=== PATIENT | male | born 1945 | race Caucasian/White ===

== ENCOUNTER 2018-07-09 08:11 | Day surgery (SDC) | payer OTHER ==
[2018-07-09] MEDS ORDERED: SURGIFLO MATRIX KIT WITH THROMBIN 8 ML TP ONE (08:34)
[2018-07-09] MEDS ORDERED: CHLORHEXIDINE GLUC HIBICLENS 118 ML BTL TP ONE (08:34)
[2018-07-09] MEDS ORDERED: BUPIVACAINE 0.25% 30 ML SDV ONE (08:35)
[2018-07-09] MEDS ORDERED: EPINEPHrine 1 MG/ML INJ ONE (08:35)
[2018-07-09] MEDS ORDERED: BACITRACIN 50,000 UNITS/10 ML SYR IRR ONE (08:35)
[2018-07-09] MEDS ORDERED: ceFAZolin 2 GM/DEXTROSE 100 ML IV ONE (08:56)
[2018-07-09] MEDS ORDERED: ACETAMINOPHEN 500 MG TAB PO ONE (08:56)
[2018-07-09] MEDS ORDERED: LIDOCAINE 1% 2 ML INJ ID PRN (08:57)
[2018-07-09] MEDS ORDERED: LR 1,000 ML IV ONE (08:57)
[2018-07-09] MEDS ORDERED: PROPOFOL/EMULSION 500 MG/50 ML BOTTLE IV ONE (09:12)
--- NOTE | 2018-07-09 09:25 | PDHPUP ---
History & Physical Update H&P update statement: This history and physical update is based on an assessment of the patient which was completed after admission or registration (within 24 hours), but prior to the surgery/procedure. H&P update: H&P reviewed & patient examined, no change in patient's condition since H&P completed (Consents signed and sited marked. All questions answered.)
[2018-07-09] MEDS ORDERED: fentaNYL 100 MCG/2 ML INJ ONE ×2 (09:53→11:54)
[2018-07-09] MEDS ORDERED: ONDANSETRON 4 MG/2 ML VIAL ONE (10:19)
[2018-07-09] MEDS ORDERED: SUGAMMADEX SODIUM 200 MG/2 ML VIAL IVP ONE (10:19)
[2018-07-09] MEDS ORDERED: LIDOCAINE 2% 5 ML SDV ONE (10:19)
[2018-07-09] MEDS ORDERED: ROCURONIUM 50 MG/5 ML VIAL ONE (10:19)
[2018-07-09] MEDS ORDERED: ONDANSETRON 4 MG/2 ML VIAL IVP PRN (10:28)
[2018-07-09] MEDS ORDERED: LR 500 ML IV PRN (10:28)
[2018-07-09] MEDS ORDERED: ALBUTEROL 3 ML DEYVIAL IH PRN (10:28)
[2018-07-09] MEDS ORDERED: DEXAMETHASONE 4 MG/ML VIAL IVP PRN (10:28)
[2018-07-09] MEDS ORDERED: NALOXONE HCL 0.4 MG/ML INJ IVP PRN (10:28)
--- NOTE | 2018-07-09 10:28 | PDANEPAE ---
ANE Past Medical History - Cardiovascular History Hx Hypertension: No Hx Arrhythmias: No Hx Chest Pain: No Hx Coronary Artery / Peripheral Vascular Disease: No Hx CHF / Valvular Disease: No Hx Palpitations: No - Pulmonary History Hx COPD: No Hx Asthma/Reactive Airway Disease: No Hx Recent Upper Respiratory Infection: No Hx Oxygen in Use at Home: No Hx Sleep Apnea: No Sleep Apnea Screening Result - Last Documented: Negative - Neurologic History Hx Cerebrovascular Accident: No Hx Seizures: No Hx Dementia: No - Endocrine History Hx Diabetes: No - Renal History Hx Renal Disorders: Yes Renal History Comment: HX OF PREV STONE - Liver History Hx Hepatic Disorders: No - Neurological & Psychiatric Hx Hx Neurological and Psychiatric Disorders: No - Cancer History Hx Cancer: Yes Cancer History Comment: SKIN RT EAR AND BRIDGE OF NOSE - Congenital Disorder History Hx Congenital Disorders: No - GI History Hx Gastrointestinal Disorders: Yes Gastrointestinal History Comment: CONSTIPATION - Other Health History Other Health History: SACROLITIS - Chronic Pain History Chronic Pain: Yes (LOWER BACK WITH HIPS) - Surgical History Prior Surgeries: LUMBAR FUSION 07/[address] [facility]. LUMBAR FUSION 06/2017 WITH POST HARDWARE REMVL. LITHOTRIPSY. NERVE ABLATION SI 1-3 BILATERAL ANE Review of Systems Review of Systems: - Exercise capacity METS (RN): 2 METS ANE Patient History - Allergies Allergies/Adverse Reactions: gabapentin Allergy (Verified 06/16/18 11:09) MADE HIM FEEL LIKE HE WAS DYING - Home Medications Home Medications: Herbals/Supplements -Info Only DAILY 06/16/18 [Last Taken Unknown] Meloxicam DAILY 06/16/18 [Last Taken Unknown] Oxycodone HCl QID 06/16/18 [Last Taken Unknown] - NPO status NPO Since - Liquids (Date): 07/09/18 NPO Since - Liquids (Time): 05:00 NPO Since - Solids (Date): 07/08/18 NPO Since - Solids (Time): 09:00 - Smoking Hx Smoking Status: Never smoked ANE Labs/Vital Signs - Vital Signs Blood Pressure: 135/79 Heart Rate: 58 Respiratory Rate: 16 O2 Sat (%): 95 Height: 167.64 cm Weight: 88.451 kg ANE Physical Exam - Airway Neck exam: FROM Mallampati Score: Class 1 Mouth exam: normal dental/mouth exam - Pulmonary Pulmonary: no respiratory distress, no rales or rhonchi, clear to auscultation - Cardiovascular Cardiovascular: regular rate and rhythym, no murmur, rub, or gallop - ASA Status ASA Status: II ANE Anesthesia Plan Anesthesia Plan: general endotracheal anesthesia Total IV Anesthesia: Yes
[2018-07-09] MEDS ORDERED: GLYCOPYRROLATE 0.2 MG/1 ML VIAL ONE (10:49)
[2018-07-09] MEDS ORDERED: TRANEXAMIC ACID 1,000 MG in NS 100 ML IV ONE (11:06)
[2018-07-09] MEDS ORDERED: DIAZEPAM 5 MG TAB PO PRN (11:37)
[2018-07-09] MEDS ORDERED: oxyCODONE IR 5 MG TAB PO PRN (11:37)
--- NOTE | 2018-07-09 11:37 | POSTOPPROG ---
Post Op Note Date of Operation: 07/09/18 Surgeon: Maximilian Machuca Layout Inspector: OLIVIA Segundo PAC Anesthesia: GET(General Endotracheal) Pre-op Diagnosis: Sacroilitis Post-op Diagnosis: Sacroilitis Indication: Sacroilitis Procedure: bilateral SI join fusion Inf/Abcess present in the surg proc area at time of surgery?: No EBL: Minimal PA Addendum - Addendum .: S: bilateral gluteal pain, denies any new numbness, tingling or weakness O: NAD A&Ox3 MAEx4 5/5 and equal in BUE and BLE A/P: 73y/o male s/p bilateral SI joint fusion Advance diet as tolerated Post op xrays pending Optimize pain management Patient may d/c home when meets PACU criteria
[2018-07-09] MEDS: fentaNYL 100 MCG/2 ML INJ IVP PRN ×2 (11:55→12:01)
--- NOTE | 2018-07-09 12:54 | POSTANESTH ---
Post Anesthetic Evaluation Cardiovascular Status: Normal, Stable, Similar to Pre-Op Cond Respiratory Status: Normal, Stable, Similar to Pre-op Cond. Level of Consciousness/Mental Status: Mildly Sleepy, Arousable Pain Control: Adequate, Prn Tx Ordered Nausea/Vomiting Control: Adequate, Prn Tx Ordered Complications Possibly Related to Anesthesia: None Noted
[2018-07-09 14:24] VITALS: BP 101/62
--- NOTE | 2018-07-09 20:14 | GOP ---
DATE OF OPERATION: 07/09/2018 SURGEON: Maximilian Machuca MD [facility]: [facility]. ANESTHESIA: General. PREOPERATIVE DIAGNOSIS: 1. Bilateral sacroiliitis. 2. Treatment refractory to nonoperative intervention. POSTOPERATIVE DIAGNOSIS: 1. Bilateral sacroiliitis. 2. Treatment refractory to nonoperative intervention. PROCEDURE PERFORMED: 1. Right-sided minimally invasive sacroiliac joint fusion with two 50 mm Medtronic [place] cages filled with morselized autograft and allograft. 2. Left-sided minimally invasive sacroiliac joint fusion with two 50 mm Medtronic [place] cages filled with morselized autograft and allograft. 3. Use of intraoperative 3D Stealth navigation. 4. Use of intraoperative fluoroscopy, less than 1 hour physician time. 5. Use of neuromonitoring. FINDINGS: per imaging SPECIMENS: None. ESTIMATED BLOOD LOSS: 10 mL. INDICATIONS: The patient is a 73-year-old gentleman who has undergone multiple prior lumbar spine surgeries. He presented with worsening bilateral sacroiliac joint dysfunction which has been treated with conservative management for years. The patient continued to have symptoms. After discussion of the risks, benefits, and treatment alternatives and after failing nonoperative intervention , we decided to proceed forth with surgery as described above. DESCRIPTION OF PROCEDURE: The patient was brought to the operating theater and underwent general endotracheal anesthesia without complications. He had Venodynes, BENJAMÍN hose, and appropriate lines placed by Anesthesia. He was flipped prone on the J Luis table and all bony prominences inspected and padded. The lower lumbar region was prepped and draped in the usual sterile surgical fashion. A time-out was completed per protocol. The patient received antibiotics within 1 hour of incision. The posterior superior iliac spine on the left side was palpated and an incision infiltrated with Marcaine with epinephrine. The incision was opened with a scalpel blade. The percutaneous pin for the 3D Stealth navigation clamp was then placed into the left posterior superior iliac spine. The 3D Stealth navigation system was then brought in the field. We completed a 3D Stealth navigation spin. Using 3D Stealth navigation, we picked our entry point to the left side and then right side of the sacroiliac joint. These were marked as two vertical incisions on the buttocks. We then first started on the right side, where we drilled and tapped and then measured two holes across the right side of the sacroiliac joint. These were measured as 50 mm screws. We then placed morselized autograft and allograft into two Medtronic [place] 50 mm screws which were placed across the right side of the sacroiliac joint. We then proceeded in the exact same fashion on the left side, where we then placed again two 50 mm [place] Medtronic screws filled with morselized autograft and allograft across the left side of the sacroiliac joint using the 3D Stealth navigation system. Another 3D Stealth navigation spin demonstrated excellent placement of the hardware. The navigation system was removed from the field and the wounds irrigated copiously with bacitracin irrigation. We then closed the wounds in multiple layers, including Vicryl sutures for the deep layers and Dermabond for the skin. The patient's wounds were dressed sterilely. He was then awakened, extubated, and taken to the recovery room in stable condition. There were no complications and no noted changes on neuromonitoring throughout the procedure. The use of the PA was crucial to retracting and protecting the soft tissues intraoperatively. COMPLICATIONS: None. /[id number]/MODL MTDD
== END 2018-07-09 14:13 | disposition home or self-care (01) ==
LOC: FSGY 08:11
PROVIDERS: ATTEND Neurological Surgery
PROC: 0SG Lower Joints, Fusion (ICD-10-PCS; principal; 2018-07-09 10:00)
PROC: 0SG Lower Joints, Fusion (ICD-10-PCS; principal; 2018-07-09 10:00)
PROC: 8E0WXBF Computer Assisted Procedure of Trunk Region, With Fluoroscopy (ICD-10-PCS; principal; 2018-07-09 10:00)
PROC: BR1BYZZ Fluoroscopy of Lumbosacral Joint using Other Contrast (ICD-10-PCS; principal; 2018-07-09 10:00)
PROC: 4A1034G Monitoring of Central Nervous Electrical Activity, Intraoperative, Percutaneous Approach (ICD-10-PCS; principal; 2018-07-09 10:00)
DX: M46.1 Sacroiliitis, not elsewhere classified (principal); M48.07 Spinal stenosis, lumbosacral region; M54.40 Lumbago with sciatica, unspecified side; M51.36 Other intervertebral disc degeneration, lumbar region; G89.4 Chronic pain syndrome; Z87.891 Personal history of nicotine dependence; Z98.1 Arthrodesis status
CPT/HCPCS: C1713; J0171; J0690; J2405; J2704; J3010

== ENCOUNTER 2018-11-20 04:53 | Inpatient (IN) | payer OTHER ==
[2018-11-20] MEDS ORDERED: ACETAMINOPHEN 500 MG TAB PO ONE (05:51)
[2018-11-20] MEDS ORDERED: LR 1,000 ML IV ONE (05:51)
[2018-11-20] MEDS ORDERED: ceFAZolin 2 GM/DEXTROSE 100 ML IV ONE (05:51)
[2018-11-20] MEDS ORDERED: morphINE PF 0.2 MG in SYRINGE INTRATHECAL 1 SYR IT ONE (05:51)
[2018-11-20] MEDS ORDERED: BUPIVACAINE 0.25% 30 ML SDV ONE (06:54)
[2018-11-20] MEDS ORDERED: THROMBIN (BOVINE) 20,000 UNIT VIAL TP ONE (06:54)
[2018-11-20] MEDS ORDERED: CHLORHEXIDINE GLUC HIBICLENS 118 ML BTL TP ONE (06:54)
[2018-11-20] MEDS ORDERED: CITRATE DEXTROSE SOLN 500 ML BAG ONE (06:54)
[2018-11-20] MEDS ORDERED: EPINEPHrine 1 MG/ML INJ ONE (06:55)
[2018-11-20] MEDS ORDERED: BACITRACIN 50,000 UNITS/10 ML SYR IRR ONE (06:55)
--- NOTE | 2018-11-20 07:02 | PDHPUP ---
History & Physical Update H&P update statement: This history and physical update is based on an assessment of the patient which was completed after admission or registration (within 24 hours), but prior to the surgery/procedure. H&P update: H&P reviewed & patient examined, no change in patient's condition since H&P completed (Consents signed and site marked. All questions answered. )
[2018-11-20] MEDS ORDERED: fentaNYL 100 MCG/2 ML INJ ONE (07:04)
[2018-11-20] MEDS ORDERED: REMIFENTANIL HCL 1 MG VIAL ONE ×3 (07:05→11:22)
[2018-11-20] MEDS ORDERED: PROPOFOL/EMULSION 500 MG/50 ML BOTTLE IV ONE ×3 (07:05→11:01)
[2018-11-20] MEDS ORDERED: LIDOCAINE 2% 5 ML SDV ONE (07:07)
[2018-11-20] MEDS ORDERED: ROCURONIUM 50 MG/5 ML VIAL ONE (07:09)
[2018-11-20] MEDS ORDERED: KETAMINE 200 MG/20 ML VIAL ONE (07:14)
[2018-11-20] MEDS ORDERED: ONDANSETRON 4 MG/2 ML VIAL ONE (07:16)
[2018-11-20] MEDS ORDERED: DEXAMETHASONE 4 MG/ML VIAL ONE (07:16)
--- NOTE | 2018-11-20 07:19 | PDANEPAE ---
ANE History of Present Illness previous spine surgeries with ongoing lumbosacral radiculopathy ANE Past Medical History - Cardiovascular History Hx Hypertension: No Hx Arrhythmias: No Hx Chest Pain: No Hx Coronary Artery / Peripheral Vascular Disease: No Hx CHF / Valvular Disease: No Hx Palpitations: No - Pulmonary History Hx COPD: No Hx Asthma/Reactive Airway Disease: No Hx Recent Upper Respiratory Infection: No Hx Oxygen in Use at Home: No Hx Sleep Apnea: No Sleep Apnea Screening Result - Last Documented: Negative Pulmonary History Comment: USES O2 WHEN AT 10,000 FT AT TIMES TO PREVENT HEADACHES - Neurologic History Hx Cerebrovascular Accident: No Hx Seizures: No Hx Dementia: No Neurologic History Comment: HX OF SPINAL FUSIONS - Endocrine History Hx Diabetes: No - Renal History Hx Renal Disorders: Yes Renal History Comment: HX OF PREV STONE - Liver History Hx Hepatic Disorders: No - Neurological & Psychiatric Hx Hx Neurological and Psychiatric Disorders: No - Cancer History Hx Cancer: Yes Cancer History Comment: SKIN RT EAR AND BRIDGE OF NOSE - Congenital Disorder History Hx Congenital Disorders: No - GI History Hx Gastrointestinal Disorders: Yes Gastrointestinal History Comment: CONSTIPATION - Other Health History Other Health History: SACROLITIS. WEARS GLASSES - Chronic Pain History Chronic Pain: Yes (LOWER BACK WITH HIPS) - Surgical History Prior Surgeries: 07/09/18 SI FUSION WITH [facility]. LUMBAR FUSION 07/2017 AT [facility]. LUMBAR FUSION 06/2017 WITH POST HARDWARE REMVL. LITHOTRIPSY. NERVE ABLATION SI 1-3 BILATERAL ANE Review of Systems Review of systems is: negative Review of Systems: - Exercise capacity METS (RN): 4 METS ANE Patient History - Allergies Allergies/Adverse Reactions: gabapentin Allergy (Verified 11/20/18 05:54) MADE HIM FEEL LIKE HE WAS DYING - Home Medications Home medications: home medication list seen and reviewed Home Medications: Herbals/Supplements -Info Only 1 each PO DAILY 06/16/18 [Last Taken 11/13/18] Acetaminophen [Tylenol ES 500 mg (*)] 500 mg PO Q6 PRN 11/03/18 [Last Taken ] Ascorbic Acid [Vitamin C 500 mg (*)] 1,000 mg PO DAILY 11/03/18 [Last Taken 04/26] Cholecalciferol Vit D3 [Vitamin D3 2000 units tab (OTC)] 2,000 units PO DAILY [Last Taken 11/13/18] Diazepam [Valium 5 MG (*)] 5 mg PO QID 11/03/18 [Last Taken 11/20/18] Morphine Sulfate [Ms Contin] 30 mg PO BID 11/03/18 [Last Taken 11/20/18] Polyethylene Glycol 3350 [Miralax 17 gm (*)] 17 gm PO DAILY 11/03/18 [Last Taken 11/17/18] Tamsulosin HCl [Flomax 0.4 MG (*)] 0.4 mg PO DAILY 11/03/18 [Last Taken 11/06/18 ] Vitamin B Complex [Vitamin B Complex (OTC)] 1 each PO DAILY 11/03/18 [Last Taken 11/13/18] oxyCODONE IR [Oxycodone Ir (*)] 10 mg PO QID PRN 11/03/18 [Last Taken 11/20/18] - NPO status NPO Since - Liquids (Date): 11/19/18 NPO Since - Liquids (Time): 20:00 NPO Since - Solids (Date): 09/07/13 - Anes Hx Anes Hx: no prior problems - Smoking Hx Smoking Status: Never smoked - Alcohol Use Alcohol Use: None - Family Anes Hx Family Anes Hx: none Family Hx Anesthesia Complications: NONE ANE Labs/Vital Signs - Vital Signs Blood Pressure: 161/93 Heart Rate: 60 Respiratory Rate: 16 O2 Sat (%): 94 Height: 167.64 cm Weight: 83.461 kg ANE Physical Exam - Airway Neck exam: FROM Mallampati Score: Class 1 Mouth exam: normal dental/mouth exam - Pulmonary Pulmonary: no respiratory distress - Cardiovascular Cardiovascular: regular rate and rhythym - ASA Status ASA Status: III ANE Anesthesia Plan Anesthesia Plan: general endotracheal anesthesia Lines/Monitors: arterial line, additional IV
[2018-11-20] MEDS ORDERED: BUPIVACAINE 0.5% 30 ML SDV ONE (07:40)
[2018-11-20] MEDS ORDERED: HYDROmorphONE/DILAUDID 2 MG/ML INJ ONE (08:03)
[2018-11-20] MEDS ORDERED: MIDAZOLAM 2 MG/2 ML VIAL ONE (08:24)
[2018-11-20] MEDS ORDERED: BISACODYL 10 MG SUPP PR PRN (09:18)
[2018-11-20] MEDS ORDERED: POLYETHYLENE GLYCOL 3350 17 GM PKT PO PRN (09:18)
[2018-11-20] MEDS ORDERED: MAGNESIUM HYDROXIDE 30 ML UDCUP PO PRN (09:18)
[2018-11-20] MEDS ORDERED: diphenhydrAMINE 25 MG CAP PO PRN (09:18)
[2018-11-20] MEDS ORDERED: ONDANSETRON 4 MG/2 ML VIAL IVP PRN ×2 (09:18→11:07)
[2018-11-20] MEDS ORDERED: ONDANSETRON DISINTEGRATING 4 MG TAB PO PRN (09:18)
[2018-11-20] MEDS ORDERED: LACTULOSE 20 GM/30 ML UDCUP PO PRN (09:18)
[2018-11-20] MEDS ORDERED: ePHEDrine SULFATE 25 MG/5 ML SYR ONE (09:36)
[2018-11-20] MEDS ORDERED: ceFAZolin 1 GM VIAL ONE (10:57)
[2018-11-20] MEDS ORDERED: LR 500 ML IV PRN (11:07)
[2018-11-20] MEDS ORDERED: LABETALOL HCL 5 MG/ML 20 ML MDV IVP PRN (11:07)
[2018-11-20] MEDS ORDERED: NALOXONE HCL 0.4 MG/ML INJ IVP PRN (11:07)
[2018-11-20] MEDS ORDERED: DIAZEPAM 5 MG/ML 1 ML SYR IVP PRN (11:07)
[2018-11-20] MEDS ORDERED: PHENYLEPHRINE HCL 100 MCG/ML SYR IVP PRN (11:07)
[2018-11-20] MEDS ORDERED: HYDROCODONE/APAP 5/325 TAB PO PRN (11:07)
[2018-11-20] MEDS ORDERED: HYDROmorphONE/DILAUDID 2 MG/ML INJ IVP PRN (11:07)
[2018-11-20] MEDS ORDERED: fentaNYL 100 MCG/2 ML INJ IVP PRN (11:07)
[2018-11-20] MEDS ORDERED: PROMETHAZINE HCL 25 MG/ML INJ IVP PRN (11:07)
[2018-11-20] MEDS ORDERED: oxyCODONE IR 5 MG TAB PO PRN (11:07)
[2018-11-20] MEDS ORDERED: ALBUTEROL 3 ML DEYVIAL IH PRN (11:07)
[2018-11-20] MEDS ORDERED: ACETAMINOPHEN 500 MG TAB PO PRN (11:07)
--- NOTE | 2018-11-20 11:07 | POSTANESTH ---
Post Anesthetic Evaluation Cardiovascular Status: Normal, Stable Respiratory Status: Normal, Stable Level of Consciousness/Mental Status: Can Participate in Eval, Mildly Sleepy, Arousable Pain Control: Adequate, Prn Tx Ordered Nausea/Vomiting Control: Adequate, Prn Tx Ordered Complications Possibly Related to Anesthesia: None Noted
--- NOTE | 2018-11-20 13:09 | PDMN ---
Medical Necessity Medical necessity: MCG: S820 lumbar fusion INPT only OP: L5/S1 anterior lumbar fusion L5/S1 posterior lumbar fusion with hardware revision--. AUTH# [id number] APPROVED FOR CPT CODES 39172, 66048, 09003, 06562, 73933, 94565 AND 19233 TO BE DONE INPATIENT. 2 DAYS LOS.
--- NOTE | 2018-11-20 13:14 | GOP ---
[f rep st] OPERATIVE REPORT DATE OF OPERATION: 11/20/2018 SURGEON: Maximilian Machuca MD CO-SURGEON: Antwan Lou MD FOREIGN STUDENT ADVISER: HERNANDO Garza ANESTHESIA: General. COMPLICATIONS: None. PREOPERATIVE DIAGNOSIS: 1. 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 2. Ongoing low back pain. 3. Treatment refractory to non-operative intervention. POSTOPERATIVE DIAGNOSIS: 1. 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 2. Ongoing low back pain. 3. Treatment refractory to non-operative intervention. PROCEDURE PERFORMED: 1. Anterior arthrodesis with approach to L5-S1. 2. Exploration of prior anterior lumbar hardware and subsequent removal of anterior interbody hardware at the L5-S1 level. 3. Redo L5-S1 diskectomy and interbody fusion using a 12 degree 16 x 30 x 24 mm Medtronic perimeter peek cage filled with morselized autograft and allograft. 4. Anterior lumbar fusion L5-S1 with a large Medtronic Pivox plate with 1 screw into L5 and 1 screw into S1. 5. Use of intraoperative fluoroscopy, less than 1 hour physician time. 6. Use of neuromonitoring. FINDINGS: per imaging SPECIMENS: None. ESTIMATED BLOOD LOSS: 150 mL. INDICATIONS: The patient is a very pleasant gentleman who has undergone multiple lumbar prior spinal surgeries including bilateral SI joint fusions. He continued to have ongoing low back pain. Imaging demonstrated some lucencies around the bilateral S1 screws with no definitive evidence of L5-S1 fusion. After discussion of risks, benefits, and treatment alternatives, we decided to proceed with surgery as described above. Please note, this is stage I of a planned 2 stage surgical procedure. Stage 2 will be a posterior approach described in a separate operative report. DESCRIPTION OF PROCEDURE: The patient was brought to operating theater and underwent general endotracheal anesthesia without complications. He had Venodynes, BENJAMÍN hose, and the appropriate lines placed by Anesthesia. His arms were placed across and a small bump placed on the lumbar spine. The lower abdominal region was prepped and draped in the usual sterile surgical fashion. A time-out was completed per protocol and the patient received antibiotics within [address] Lou and his team will then dictate in a separate operative report the anterior abdominal approach to get us to the anterior aspect of L5-S1. Once this was completed, we confirmed our level using lateral fluoroscopy. We incised the anterior L5-S1 disk space with an 11 blade. We were able to identify the prior hardware at the L5-S1 space and this did appear to be loose upon further exploration with a Edgar. We used the bur tip on the drill bit and osteotomes to remove the prior interbody cage at the L5-S1 level which was then passed off the field. We used the drill bit, curettes and Kerrison punches to complete a redo L5-S1 diskectomy. We prepared the cartilaginous endplates and measured the interbody space. We placed a 12 degree 16 x 30 x 24 mm Perimeter peek cage filled with morselized autograft and allograft into the L5-S1 disk space. We then drilled down the anterior osteophytes and secured a large Medtronic Pivox plate with a screw into L5 and a screw into S1. AP and lateral x-rays demonstrated good placement of the hardware. Dr. Antwan Lou will then dictate in a separate operative report the abdominal closure. The patient's neuro monitoring was stable by the end of this case. The sponge, needle and instrument counts were correct. /[id number]/MODL MTDD
[2018-11-20] MEDS ORDERED: LABETALOL HCL 5 MG/ML 20 ML MDV ONE (13:16)
[2018-11-20] MEDS ORDERED: MEPERIDINE 25 MG/0.5 ML AMP ONE (13:16)
[2018-11-20] MEDS: MEPERIDINE 25 MG/0.5 ML AMP IVP PRN ×2 (13:31→13:35)
--- NOTE | 2018-11-20 13:41 | POSTOPPROG ---
Post Op Note Date of Operation: 11/20/18 Surgeon: Maximilian Machuca Search Strategist: OLIVIA Segundo PAC Anesthesia: GET(General Endotracheal) Pre-op Diagnosis: Psedoarthoresis, back pain Post-op Diagnosis: Psedoarthoresis, back pain Indication: Psedoarthoresis, back pain Procedure: L5/S1 ALIF, L4-S1 exploration and revison of prior fusion Inf/Abcess present in the surg proc area at time of surgery?: No EBL: 100-500 Drains: Hemovac, J Luis Cunningham PA Addendum - Addendum .: S: low back pain O: NAD A&Ox3 MAEx4 5/5 and equal in BUE and BLE 73y/o male s/p L5/S1 ALIF, L4-S1 exploration and revision of prior fusion -Post op xrays pending -PT/OT -SANDRA x1 -CLD, advance per general surgery -LSO when OOB -DVT prophx: TEDs, SCDs, Lovenox okay POD 1 -Please notify NS with any change in neuro/motor exam
[2018-11-20] MEDS ORDERED: DIAZEPAM 5 MG/ML 1 ML SYR ONE (13:55)
[2018-11-20] MEDS: HYDROmorphONE/DILAUDID 1 MG/ML INJ IVP PRN (14:40)
--- NOTE | 2018-11-20 14:40 | GOP ---
[f rep st] OPERATIVE REPORT DATE OF OPERATION: 11/20/2018 SURGEON: Maximilian Machuca MD SOLUTION CONSULTANT: Hue Segundo PA-C. ANESTHESIA: General. PREOPERATIVE DIAGNOSIS: 1. L5-S1 pseudoarthrosis with history of prior lumbar fusion L4 through S1 and bilateral sacroiliac joint fusions. 2. Low back pain. 3. Treatment refractory to non-operative intervention. POSTOPERATIVE DIAGNOSIS: 1. L5-S1 pseudoarthrosis with history of prior lumbar fusion L4 through S1 and bilateral sacroiliac joint fusions. 2. Low back pain. 3. Treatment refractory to non-operative intervention. PROCEDURE PERFORMED: 1. Posterior arthrodesis with approach to L4, L5, and S1. 2. Exploration of lumbar hardware with subsequent removal of L4, L5, and S1 pedicle screws from the Solera 4.75 system. 3. Posterolateral fusion with bilateral pedicle screw placement into L4, L5, and S1 from the [employer] Solera 5.5/6.0 system. 4. Posterolateral fusion on the left between L4 and S1 with morselized autograft and allograft. 5. Use of intraoperative 3D Stealth navigation. 6. Use of intraoperative fluoroscopy, less than 1 hour physician time. 7. Use of neuromonitoring. 8. Injection of preservative-free intrathecal narcotics. FINDINGS: per imaging SPECIMENS: Cultures were taken from the old hardware was sent to microbiology. ESTIMATED BLOOD LOSS: 30 mL INDICATIONS: The patient is a very pleasant gentleman who has undergone multiple spinal fusions including bilateral SI joint fusions for ongoing low back pain. Imaging demonstrated a possible loosening of the bilateral S1 screws , and there was concern for possible pseudoarthrosis. After discussion of the risks, benefits, and alternatives, and after failing nonoperative intervention, I decided to proceed forth with surgery as described above. DESCRIPTION OF PROCEDURE: Please note that this is stage 2 of a planned 2- stage surgical procedure. Stage 1 is dictated in a separate operative report and was the anterior approach to the L5-S1. The patient was already asleep at the time of the completion of stage 1. At this point, he was flipped prone onto the J Luis table, and all bony prominences were inspected and padded. The previous lumbar incision was identified and marked. This area was prepped and draped in usual sterile surgical fashion. A time-out was completed again per protocol, and the patient received re-dosing of antibiotics per protocol. The incision was infiltrated with Marcaine with epinephrine. Using the monopolar, a dissection was taken down midline to the lumbodorsal fascia, and we completed out dissection laterally to identify the prior hardware at the L4, L5, and S1 levels. Care was taken to avoid the midline defect from his prior laminectomy. We removed the bilateral cap screws in the L4, L5, and S1 levels, as well as bilateral rods and passed them off the field. We then used a distractor to explore the L4 -L5 and L5-S1 levels. The S1 screws were noted to be slightly loose. We then removed the pedicle screws from the L4, L5, and S1 levels and culture swab of these to ensure that there was no infection. We then replaced the screws with 7.5 x 50 mm screw on the left at L4, 7.5 x 55 mm screw on the right at L4, 7.5 x 40 mm screw on the left at L5, 7.5 x 45 mm screw on the right L5, and left at S1 an 8.5 x 45 mm screw on the right S1, all from the [employer] 5.5 x 60 System. A 3D navigation spin demonstrated good placement of the hardware. We decorticated the bone on the left side between L4 and S1. We placed 2 lordotic rods into the heads of the screws between L4 and S1 and secured them down with cap screws which were then tightened to the printed circuit board drafter's setting. We placed morselized autograft and allograft on the left side between L4 and S1 for the posterolateral fusion. We injected preservative-free intrathecal narcotics. A drain was left in the subfascial space. The wound then closed in multiple layers including Vicryl sutures deep layers and Dermabond for skin. The patient's wound was dressed sterilely. He was flipped supine onto the transfer cart, where he was awakened, extubated, taken to recovery room in stable condition. There were no complications and no noted changes on neuromonitoring throughout the procedure. COMPLICATIONS: None. /[id number]/MODL MTDD
[2018-11-20] MEDS: DIAZEPAM 5 MG TAB PO SCH ×3 (14:52→20:05)
[2018-11-20] MEDS: ACETAMINOPHEN 500 MG TAB PO SCH ×2 (14:53→20:07)
[2018-11-20] MEDS: NS 1,000 ML IV SCH (14:58)
--- NOTE | 2018-11-20 15:22 | ASMTCMCOM ---
CM Note CM Note Notes: Pt had planned spinal surgery, resides with . PT/OT evals pending. CM to follow for d/c planning. Date Signed: 11/20/2018 03:21 PM Electronically Signed By:KODI Azar
[2018-11-20] MEDS: oxyCODONE IR 5 MG TAB PO PRN (16:23)
[2018-11-20] MEDS: ceFAZolin 2 GM/DEXTROSE 100 ML IV SCH ×2 (16:25→23:30)
[2018-11-20] MEDS: FAMOTIDINE 20 MG TAB PO SCH (20:05)
[2018-11-20] MEDS: morphINE SR 30 MG TAB PO SCH (20:05)
[2018-11-20] MEDS: SENNOSIDES/DOCUSATE SODIUM TAB PO SCH (20:05)
[2018-11-21] MEDS: NS 1,000 ML IV SCH (03:18)
[2018-11-21] MEDS: oxyCODONE IR 5 MG TAB PO PRN ×3 (03:24→16:21)
[2018-11-21] MEDS: DIAZEPAM 5 MG TAB PO SCH ×4 (05:12→20:35)
[2018-11-21] MEDS: ACETAMINOPHEN 500 MG TAB PO SCH ×3 (05:12→20:37)
[2018-11-21] MEDS: TAMSULOSIN HCL 0.4 MG CAP PO SCH (08:01)
[2018-11-21] MEDS: FAMOTIDINE 20 MG TAB PO SCH ×2 (08:01→20:35)
[2018-11-21] MEDS: SENNOSIDES/DOCUSATE SODIUM TAB PO SCH ×2 (08:01→20:39)
[2018-11-21] MEDS: VITAMIN B COMPLEX 1 EA CAP/TAB PO SCH (08:01)
[2018-11-21] MEDS: CHOLECALCIFEROL VIT D3 2,000 UNITS TAB/CAP PO SCH (08:01)
[2018-11-21] MEDS ORDERED: HERBALS PO SCH (09:00)
[2018-11-21] MEDS ORDERED: [UNRECOGNIZED DRUG - OTHER] PO SCH (09:00)
[2018-11-21] MEDS: morphINE SR 30 MG TAB PO SCH ×2 (09:14→20:35)
--- NOTE | 2018-11-21 10:07 | SOAPPROG ---
SOAP Progress Note Assessment/Plan: Assessment: POD #1 sp L5/S1 ALIF, L4-S1 exploration and revison of prior fusion. Doing well with resolution of left leg pain Plan: advance diet per Gen surg. Xrays Lumbar spine when he can tolerate Continue SANDRA PT/OT LSO when OOB 11/21/18 10:01 11/21/18 10:07 11/21/18 10:50 Subjective: lying in bed, comfortable. Left leg pain better ate breakfast, states he is passing gas and wants to have a BM Denies new N/T/W Objective: Vital Signs Temp Pulse Resp BP Pulse Ox 36.3 C 67 17 83/43 L 91 L 11/21/18 07:54 11/21/18 07:54 11/21/18 07:54 11/21/18 07:54 11/21/18 07:54 Microbiology 11/20/18 12:24 Gram Stain - Final Other - Eswab Laboratory Results 11/20/18 13:35 11/20/18 11/21/18 11/22/18 05:59 05:59 05:59 Intake Total 4219 300 Output Total 1090 Balance 3129 300 Neuro: awake, alert, SWEENEY, sens +Lt follows commands Abdomen: soft, mildly tender, non- distended Ant incision: CDI Post incision: CDI SANDRA: 90 ml ICD10 Worksheet Patient Problems: Problems Problem Status Onset Pseudarthrosis after fusion or arthrodesis Acute - ICD10 Problem Qualifiers (1) Pseudarthrosis after fusion or arthrodesis
--- NOTE | 2018-11-21 10:28 | SOAPPROG ---
SOAP Progress Note Assessment/Plan: Assessment/Plan: 73yo M POD#1 s/p anterior exposure by Dr. Lou for L5/S1 ALIF , L4-S1 exploration and revision of prior fusion by Dr. Machuca. Pain in both abd and back - controlled No flatus and hypoactive BS - Continue clears until return of bowel function NSG managing Seen with Dr. Chicas S: Complains of pain this morning, worse in back than abdomen. No nausea. No flatus. O: General: Lying in bed, comfortable, no acute distress Respiratory: No increased work of breathing Abdomen: Hypoactive bowel sounds, soft, nontender. Dressing intact. Skin: Warm and dry. Psych: Mood and affect normal Neuro: Grossly intact 11/21/18 10:29 11/21/18 10:30 Objective: Vital Signs Temp Pulse Resp BP Pulse Ox 36.3 C 67 17 83/43 L 91 L 11/21/18 07:54 11/21/18 07:54 11/21/18 07:54 11/21/18 07:54 11/21/18 07:54 Microbiology 11/20/18 12:24 Gram Stain - Final Other - Eswab Laboratory Results 11/20/18 13:35 11/20/18 11/21/18 11/22/18 05:59 05:59 05:59 Intake Total 4219 300 Output Total 1090 Balance 3129 300 ICD10 Worksheet Patient Problems: Problems Problem Status Onset Pseudarthrosis after fusion or arthrodesis Acute
--- NOTE | 2018-11-21 13:30 | ASMTCMCOM ---
CM Note CM Note Notes: PT is recommending HC. OT is recommending Home w/ 24 hr supervision. CM met w/ pt for dispo planning. Pt deferred d/c planning to his Saumya. CM called Saumya (P#: [phone]) and spoke to her about the recommendations. Saumya would like a referral made to [facility]. [facility] is able to accept. CM confirmed pts address and phone number. Pts PCP is Dr. Dumont. CM to follow. Plan: [facility]; PT, possibly OT Date Signed: 11/21/2018 01:29 PM Electronically Signed By:FÉLIX Harvey
[2018-11-21] MEDS: ENOXAPARIN 40 MG/0.4 ML SYR SC SCH (16:17)
[2018-11-21] MEDS ORDERED: NS 1,000 ML IV SCH (16:30)
[2018-11-22] MEDS: oxyCODONE IR 5 MG TAB PO PRN ×5 (02:58→22:32)
[2018-11-22] MEDS: DIAZEPAM 5 MG TAB PO SCH ×4 (05:16→19:58)
[2018-11-22] MEDS: ACETAMINOPHEN 500 MG TAB PO SCH ×3 (06:00→22:32)
[2018-11-22] MEDS: morphINE SR 30 MG TAB PO SCH ×2 (07:41→19:58)
[2018-11-22] MEDS: FAMOTIDINE 20 MG TAB PO SCH ×2 (07:41→19:58)
[2018-11-22] MEDS: CHOLECALCIFEROL VIT D3 2,000 UNITS TAB/CAP PO SCH (07:44)
[2018-11-22] MEDS: VITAMIN B COMPLEX 1 EA CAP/TAB PO SCH (07:44)
[2018-11-22] MEDS: TAMSULOSIN HCL 0.4 MG CAP PO SCH (07:44)
[2018-11-22] MEDS: SENNOSIDES/DOCUSATE SODIUM TAB PO SCH ×3 (07:44→19:57)
[2018-11-22] MEDS: ENOXAPARIN 40 MG/0.4 ML SYR SC SCH (07:44)
--- NOTE | 2018-11-22 09:14 | SOAPPROG ---
SOAP Progress Note Assessment/Plan: Assessment: POD #2 sp L5/S1 ALIF, L4-S1 exploration and revison of prior fusion. Doing well with resolution of left leg pain Tenderness in RUQ abdomen Plan: advance diet per Gen surg. Xrays Lumbar spine today Remove SANDRA drain today. PT/OT LSO when OOB May need rehab. 11/22/18 09:12 Subjective: Lying in bed. Comfortable. Denies new numbness tingling or weakness. Has some right sided abdominal pain. Objective: Vital Signs Temp Pulse Resp BP Pulse Ox 36.9 C 73 18 114/62 91 L 11/22/18 07:53 11/22/18 07:53 11/22/18 07:53 11/22/18 07:53 11/22/18 07:53 Microbiology 11/20/18 12:24 Gram Stain - Final Other - Eswab Laboratory Results 11/20/18 13:35 /11/22/18 11/23/18 05:59 05:59 05:59 Intake Total 4219 1600 Output Total 1090 2265 Balance 3129 -665 Neuro; SWEENEY, sens +LT FC x 4 oriented x 3 Dressing: CDI SANDRA: 15ml ICD10 Worksheet Patient Problems: Problems Problem Status Onset Pseudarthrosis after fusion or arthrodesis Acute - ICD10 Problem Qualifiers (1) Pseudarthrosis after fusion or arthrodesis
[2018-11-22] MEDS: HYDROmorphONE/DILAUDID 1 MG/ML INJ IVP PRN (10:38)
--- NOTE | 2018-11-22 10:40 | SOAPPROG ---
SOAP Progress Note Assessment/Plan: Assessment/Plan: 73yo M POD#2 s/p anterior exposure by Dr. Lou for L5/S1 ALIF , L4-S1 exploration and revision of prior fusion by Dr. Machuca. Pain in both abd and back - controlled No flatus this am, large BM overnight - continue clears until return of bowel function NSG managing S: Complains of pain this morning, worse in back than abdomen. Tolerating clears but decreased appetite. Not hungry. BM last night, no flatus this am O: General: sitting upright in chair, wincing in pain Respiratory: No increased work of breathing Abdomen: Hypoactive bowel sounds, soft, nontender. Dressing intact.incision cdi Psych: Mood and affect normal Neuro: Grossly intact MSK: Brace in place 11/22/18 10:46 Objective: Vital Signs Temp Pulse Resp BP Pulse Ox 36.9 C 73 18 114/62 91 L 11/22/18 07:53 11/22/18 07:53 11/22/18 07:53 11/22/18 07:53 11/22/18 07:53 Microbiology 11/20/18 12:24 Gram Stain - Final Other - Eswab Laboratory Results 11/20/18 13:35 11/21/18 11/22/18 11/23/18 05:59 05:59 05:59 Intake Total 4219 1600 Output Total 3233 8582 Balance 1302 -426 ICD10 Worksheet Patient Problems: Problems Problem Status Onset Pseudarthrosis after fusion or arthrodesis Acute
[2018-11-23] MEDS: oxyCODONE IR 5 MG TAB PO PRN ×2 (05:02→09:08)
[2018-11-23] MEDS: DIAZEPAM 5 MG TAB PO SCH ×4 (05:02→21:22)
[2018-11-23] MEDS: ACETAMINOPHEN 500 MG TAB PO SCH ×3 (05:38→15:06)
--- NOTE | 2018-11-23 07:19 | SOAPPROG ---
SOAP Progress Note Assessment/Plan: Assessment: 73 yo M POD #3 L5/S1 ALIF and L4-S1 posterior fusion Plan: stable and doing well overall :) PT/OT scd/ludmila/lovenox for dvt prophylaxis post op x-rays look great diet per general surgery dc principal planner to eval discharge options please call with neuro changes discussed with Dr Machuca 11/23/18 07:17 Subjective: some back tightness, no leg pain, no weakness. Objective: Vital Signs Temp Pulse Resp BP Pulse Ox 37.1 C 74 16 111/56 L 94 11/23/18 00:00 11/23/18 00:00 11/23/18 00:00 11/23/18 00:00 11/23/18 00:00 Microbiology 11/20/18 12:24 Gram Stain - Final Other - Eswab Laboratory Results 11/20/18 13:35 11/22/18 11/23/18 11/24/18 05:59 05:59 05:59 Intake Total 1600 Output Total 2265 400 Balance -665 -400 AAOx4, +FC PERRL, EOMI, no facial droop 5/5 + light touch C/D/I ICD10 Worksheet Patient Problems: Problems Problem Status Onset Pseudarthrosis after fusion or arthrodesis Acute
[2018-11-23] MEDS: TAMSULOSIN HCL 0.4 MG CAP PO SCH (09:09)
[2018-11-23] MEDS: CHOLECALCIFEROL VIT D3 2,000 UNITS TAB/CAP PO SCH (09:09)
[2018-11-23] MEDS: ENOXAPARIN 40 MG/0.4 ML SYR SC SCH (09:09)
[2018-11-23] MEDS: morphINE SR 30 MG TAB PO SCH ×2 (09:09→21:22)
[2018-11-23] MEDS: FAMOTIDINE 20 MG TAB PO SCH ×2 (09:09→21:22)
[2018-11-23] MEDS: VITAMIN B COMPLEX 1 EA CAP/TAB PO SCH (09:09)
[2018-11-23] MEDS: SENNOSIDES/DOCUSATE SODIUM TAB PO SCH ×2 (09:09→21:21)
--- NOTE | 2018-11-23 10:40 | SOAPPROG ---
SOAP Progress Note Assessment/Plan: Assessment/Plan: 73yo M POD#3 s/p anterior exposure by Dr. oLu for L5/S1 ALIF , L4-S1 exploration and revision of prior fusion by Dr. Machuca. Pain in both abd and back - controlled Passing flatus and BMs. Tolerating regular diet. NSG managing S: Having pain both in back and abdomen. Waiting for pain meds. Reports he's tolerating regular diet. Denies nausea/vomiting. O: Alert Afebrile RRR No increased WOB Abdomen: soft, attp, incision cdi, normoactive BS General: sitting upright in chair, wincing in pain 11/23/18 10:37 Objective: Vital Signs Temp Pulse Resp BP Pulse Ox 37.1 C 84 14 120/66 90 L 11/23/18 07:14 11/23/18 07:14 11/23/18 07:14 11/23/18 07:14 11/23/18 07:14 Microbiology 11/20/18 12:24 Gram Stain - Final Other - Eswab Laboratory Results 11/20/18 13:35 11/22/18 11/23/18 11/24/18 05:59 05:59 05:59 Intake Total 1600 Output Total 2267 400 120 Balance -665 -400 -120 ICD10 Worksheet Patient Problems: Problems Problem Status Onset Pseudarthrosis after fusion or arthrodesis Acute
--- NOTE | 2018-11-23 15:06 | ASMTCMCOM ---
CM Note CM Note Notes: Today PT/OT rec SNF, pt and family agree. Pt [facility] [employer] [facility] will be needed. CM to follow. D/c plan: [facility] pending aceptance and insuance auth Date Signed: 11/23/2018 03:06 PM Electronically Signed By:KODI Azar
[2018-11-24] MEDS: oxyCODONE IR 5 MG TAB PO PRN (00:05)
[2018-11-24] MEDS: DIAZEPAM 5 MG TAB PO SCH ×4 (05:34→20:04)
[2018-11-24] MEDS: ACETAMINOPHEN 500 MG TAB PO SCH ×3 (05:35→22:41)
[2018-11-24] MEDS: CHOLECALCIFEROL VIT D3 2,000 UNITS TAB/CAP PO SCH (08:20)
[2018-11-24] MEDS: morphINE SR 30 MG TAB PO SCH ×2 (08:20→22:41)
[2018-11-24] MEDS: TAMSULOSIN HCL 0.4 MG CAP PO SCH (08:20)
[2018-11-24] MEDS: VITAMIN B COMPLEX 1 EA CAP/TAB PO SCH (08:20)
[2018-11-24] MEDS: ENOXAPARIN 40 MG/0.4 ML SYR SC SCH (08:20)
[2018-11-24] MEDS: FAMOTIDINE 20 MG TAB PO SCH ×2 (08:20→20:04)
--- NOTE | 2018-11-24 10:45 | NEUSURGPN ---
Assessment/Plan: Assessment: 73 yo M POD #4 L5/S1 ALIF and L4-S1 posterior fusion Plan: stable and doing well overall PT/OT scd/ludmila/lovenox for dvt prophylaxis post op x-rays demonstrate intact hardware without evidence of failure diet per general surgery dc store planner to eval discharge options, likely to SNF when bed available and cleared by gen surg/therapies please call with neuro changes Seen by Dr Machuca and myself. Subjective: stabbing pre surgical pain resolved. Incisional site low back pain. Objective: NAD A&Ox3 MAEx4 5/ and equal in BUE and BLE Incisions c/d/i Catheter Insertion Date: 11/20/18 - Physician Discussed Patient with : [facility] Physical Exam - Vitals, I&O, Labs I and O 11/23/18 11/24/18 11/25/18 05:59 05:59 05:59 Intake Total 250 Output Total 400 870 Balance -400 -620 Intake: Oral (ml) 250 Output: Urine (ml) 400 870 Urinal 400 870 Other: Number of Voids Toilet 1 Urinal 2 1 Number of Stools Toilet 1 Microbiology 11/20/18 12:24 Gram Stain - Final Other - Eswab Vital Signs Temp Pulse Resp BP Pulse Ox 37.1 C 74 14 106/57 L 89 L 11/24/18 07:22 11/24/18 07:22 11/24/18 07:22 11/24/18 07:22 11/24/18 07:22 Laboratory Results 11/20/18 13:35 ICD10 Worksheet Patient Problems: Problems Problem Status Onset Pseudarthrosis after fusion or arthrodesis Acute
[2018-11-24] MEDS: SENNOSIDES/DOCUSATE SODIUM TAB PO SCH ×2 (10:49→20:06)
--- NOTE | 2018-11-24 12:27 | SOAPPROG ---
SOAP Progress Note Assessment/Plan: Assessment/Plan: 73yo M POD#4 s/p anterior exposure by Dr. Lou for L5/S1 ALIF , L4-S1 exploration and revision of prior fusion by Dr. Machuca. Appears to be doing well. Pain controlled. Passing gas. Tolerating diet. Seen with Dr. Lou. Likely to SNF soon. Discussed limitations 2/2 abdominal surgery. Discussed outpatient f/u c general surgery. S: every day gets a little better. O: alert, nad, smiling no wob rrr abd soft, inc cdi, no erythema. 11/24/18 12:24 Objective: Vital Signs Temp Pulse Resp BP Pulse Ox 37.1 C 74 14 106/57 L 89 L 11/24/18 07:22 11/24/18 07:22 11/24/18 07:22 11/24/18 07:22 11/24/18 07:22 Microbiology 11/20/18 12:24 Gram Stain - Final Other - Eswab Laboratory Results 11/20/18 13:35 11/23/18 11/24/18 11/25/18 05:59 05:59 05:59 Intake Total 250 Output Total 400 870 Balance -400 -620 ICD10 Worksheet Patient Problems: Problems Problem Status Onset Pseudarthrosis after fusion or arthrodesis Acute
[2018-11-25] MEDS: DIAZEPAM 5 MG TAB PO SCH ×2 (05:24→11:45)
[2018-11-25] MEDS: ACETAMINOPHEN 500 MG TAB PO SCH (05:24)
--- NOTE | 2018-11-25 07:34 | NEUSURGPN ---
Date of Surgery: 11/20/18 Post Op Day: 5 Assessment/Plan: Assessment: 73 yo M POD #5 L5/S1 ALIF and L4-S1 posterior fusion Plan: stable and doing well overall PT/OT scd/ludmila/lovenox for dvt prophylaxis post op x-rays demonstrate intact hardware without evidence of failure diet per general surgery Dispo: to rehab today please call with neuro changes Discussed with Dr. Machuca Subjective: No lower extremity pain, numbness, tingling. Surgical pain controlled. Objective: Awake. Alert. PERRL. EOMI Muscle strength full at 5/5 Sensation intact Catheter Insertion Date: 11/20/18 - Physician Discussed Patient with : [facility] Physical Exam - Vitals, I&O, Labs I and O 11/24/18 11/25/18 11/26/18 05:59 05:59 05:59 Intake Total 250 Output Total 870 450 Balance -620 -450 Intake: Oral (ml) 250 Output: Urine (ml) 870 450 Toilet 150 Urinal 870 300 Other: Intake Quantity Yes Sufficient Number of Voids Toilet 1 1 Urinal 1 2 Number of Stools Toilet 1 Microbiology 11/20/18 12:24 Gram Stain - Final Other - Eswab Vital Signs Temp Pulse Resp BP Pulse Ox 36.6 C 71 16 126/71 H 96 11/24/18 23:03 11/24/18 23:03 11/24/18 23:03 11/24/18 23:03 11/24/18 23:03 Laboratory Results 11/20/18 13:35 ICD10 Worksheet Patient Problems: Problems Problem Status Onset Pseudarthrosis after fusion or arthrodesis Acute
--- NOTE | 2018-11-25 07:36 | PDIAF ---
- Diagnosis Diagnosis: Lumbar stenosis Code Status: Full Code - Medication Management Discharge Medications: electronically signed and located in the Home Medication List. - Orders Services needed: Registered Nurse, Certified Fat Purification Worker, Physical Therapy, Occupational Therapy Diet Recommendation: no restrictions on diet Diet Texture: Regular Texture Diet Wound Care Instructions: Ok to shower and get incision wet. Be gentle. No soaking in the water. Activity/Weight Bearing Restrictions: No lifting more than 10 pounds or bending/ twisting. Wear brace when out of bed. Additional Instructions: 1. Follow up with Dr. Machuca in 2 weeks. [phone] 2. Wear brace when out of bed. Refrain from lifting more than 10 pounds and bending/twisting. 3. OK to shower and get incision wet. 4. Avoid NSAIDs as these inhibit the fusion process. 5. Call Dr. Machuca's office with any questions/concerns. - Follow Up Care Current Providers and Referrals: CAMILLE GUERRA [Primary Care Provider] - Antwan Lou MD [Medical Doctor] - follow up in 2 weeks Maximilian Machuca MD [Medical Doctor] - follow up in 2 weeks
[2018-11-25 07:49] VITALS: BP 106/61
[2018-11-25] MEDS: FAMOTIDINE 20 MG TAB PO SCH (09:16)
[2018-11-25] MEDS: VITAMIN B COMPLEX 1 EA CAP/TAB PO SCH (09:16)
[2018-11-25] MEDS: TAMSULOSIN HCL 0.4 MG CAP PO SCH (09:16)
[2018-11-25] MEDS: oxyCODONE IR 5 MG TAB PO PRN (09:16)
[2018-11-25] MEDS: ENOXAPARIN 40 MG/0.4 ML SYR SC SCH (09:16)
[2018-11-25] MEDS: SENNOSIDES/DOCUSATE SODIUM TAB PO SCH (09:16)
[2018-11-25] MEDS: CHOLECALCIFEROL VIT D3 2,000 UNITS TAB/CAP PO SCH (09:16)
[2018-11-25] MEDS: morphINE SR 30 MG TAB PO SCH (09:16)
--- NOTE | 2018-11-25 11:11 | ASMTLACE ---
GENNYE Length of stay for Answers: 4-6 days current admission Acuity / Level of Answers: Yes Care: Did the patient have an inpatient admission? # of Emergency department Answers: 0 visits in the last 6 months Score: 7 Date Signed: 11/25/2018 11:10 AM Electronically Signed By:KODI Azar
--- NOTE | 2018-11-25 11:13 | ASMTCMCOM ---
CM Note CM Note Notes: Pt medically stable for d/c to [facility] SNF in [place], orders sent in [employer]. BECKY Ramirez to call report. Gabriela with [facility] scheduled wc transport. Pt updated and he will call his Sa[facility]ya with the pickup time. Date Signed: 11/25/2018 11:12 AM Electronically Signed By:KODI Azar
--- NOTE | 2018-11-25 15:37 | ASDISCHSUM ---
Discharge Information Plan Status:SNF Medically Cleared to Leave: Discharge Date:11/25/2018 12:43 PM D/C Disposition: ADT D/C Disposition:Retirement Facility Projected Discharge Date:11/24/2018 11:00 AM Transportation at D/C: Discharge Delay Reason: Follow-Up Date:11/24/2018 11:00 AM Discharge Slot: Final Diagnosis: Placement Information Referral Type:*Home Health Care Services [facility] ID:[id number] Provider Name: Address 1: Phone Number: Address 2: Fax Number: City: Selection Factors: State: Referral Type:*Custodial/SNF Referral ID:[id number] Provider Name:Sonu desouza [place] Address 1:[address] Address 2: City:[place] Selection Factors: State:[place] Patient Contact Information Contact Name:STEPHANE Relationship: Address:[address] City:[place] Alternate Phone: State/Zip Code:[place] [address] Email: Financial Information Financial Class:Medicare Advantage Plans Primary Plan Desc:[employer] [facility] [employer] Primary Plan Number:[id number] Secondary Plan Desc: Secondary Plan Number: Assessment Information LACE LACE Length of stay for Answers: 4-6 days current admission Acuity / Level of Answers: Yes Care: Did the patient have an inpatient admission? # of Emergency department Answers: 0 visits in the last 6 months Score: 7 Date Signed: 11/25/2018 11:10 AM Electronically Signed By:KODI Azar [facility] CM Progress Note CM Note CM Note Notes: Pt had planned spinal surgery, resides with . PT/OT evals pending. CM to follow for d/c planning. Date Signed: 11/20/2018 03:21 PM Electronically Signed By:KODI Azar [facility] CM Progress Note CM Note CM Note Notes: PT is recommending HC. OT is recommending Home w/ 24 hr supervision. CM met w/ pt for dispo planning. Pt deferred d/c planning to his Saumya. CM called Saumya (P#: [phone]) and spoke to her about the recommendations. Saumya would like a referral made to [facility]. [facility] is able to accept. CM confirmed pts address and phone number. Pts PCP is Dr. Dumont. CM to follow. Plan: [facility]; PT, possibly OT Date Signed: 11/21/2018 01:29 PM Electronically Signed By:FÉLIX Harvey [facility] CM Progress Note CM Note CM Note Notes: Today PT/OT rec SNF, pt and family agree. Pt requests referral to [facility] [place]. Referral sent in [employer] and [employer] auth will be needed. CM to follow. D/c plan: [facility] pending aceptance and insuance auth Date Signed: 11/23/2018 03:06 PM Electronically Signed By:KODI Azar [facility] CM Progress Note CM Note CM Note Notes: Pt medically stable for d/c to [facility] in [place], orders sent in [employer]. BECKY Ramirez to call jonahDustin Ochoa with [facility] scheduled wc transport. Pt updated and he will call his Saumya with the pickup time. Date Signed: 11/25/2018 11:12 AM Electronically Signed By:KODI Azar [facility]
--- NOTE | 2018-11-27 16:13 | GOP ---
[f rep st] OPERATIVE REPORT DATE OF OPERATION: 11/20/2018 SURGEON: Antwan Lou MD POKER DEALER: Abbi Washington, nurse practitioner. ANESTHESIOLOGIST: Dr. Ng. PREOPERATIVE DIAGNOSIS: Spinal instability. POSTOPERATIVE DIAGNOSIS: Spinal instability. PROCEDURE PERFORMED: L5-S1 anterior spine exposure for spinal stabilization. FINDINGS: The patient was found to have large iliac veins but they were quite mobile. ESTIMATED BLOOD LOSS: Blood loss from our part of the procedure was less than 20 cc. DESCRIPTION OF PROCEDURE: The patient was taken to the operating room where he received a satisfacto ry general endotracheal anesthesia by Dr. Ng. He was placed in a supine position, prepped and draped in the usual sterile fashion. A low Pfannenstiel incision was made and carried down through t he anterior rectus sheath. The rectus sheath was dissected away from the muscle above and below this point, and then the peritoneum was entered in the midline. The small bowel was packed away as was t he sigmoid colon and the use of Omni retractor maintained exposure. The midline peritoneum was opene d over the sacral prominence, and dissection extended down to the spine. The L5-S1 space was identif ied with fluoroscopy, and wide exposure was achieved of this area, dissecting away and elevating up t he iliac vessels from the top of the L5 vertebra. The sacral artery and veins were hemoclipped and d ivided. The disk space was then fully exposed with the use of the Omni retractor and at that point, the case was turned over to Dr. Machuca for anterior spinal fusion. Once procedure was completed, we then closed the retroperitoneum with a running 0 Vicryl suture, and then the peritoneum with a runnin g 0 Vicryl suture after all sponges and retractors were removed. The fascia was closed with a runnin g #1 PDS suture for the anterior rectus sheath, 3-0 Vicryl for the subcu, and 3-0 Monocryl subcuticul ar stitch for the skin. All layers were infiltrated with 0.5% Marcaine. He tolerated the procedure well with no complications. /[id number]/MODL
== END 2018-11-25 12:43 | DRG 455 ==
LOC: F3N 04:53
PROVIDERS: ADMIT Neurological Surgery; ATTEND Neurological Surgery
PROC: 0SB40ZZ Excision of Lumbosacral Disc, Open Approach (ICD-10-PCS; principal; 2018-11-20 07:30)
PROC: 0SG30A0 Fusion of Lumbosacral Joint with Interbody Fusion Device, Anterior Approach, Anterior Column, Open Approach (ICD-10-PCS; principal; 2018-11-20 07:30)
PROC: 0SG0071 Fusion of Lumbar Vertebral Joint with Autologous Tissue Substitute, Posterior Approach, Posterior Column, Open Approach (ICD-10-PCS; principal; 2018-11-20 07:30)
PROC: 0QP004Z Removal of Internal Fixation Device from Lumbar Vertebra, Open Approach (ICD-10-PCS; principal; 2018-11-20 07:30)
PROC: 0SG3071 Fusion of Lumbosacral Joint with Autologous Tissue Substitute, Posterior Approach, Posterior Column, Open Approach (ICD-10-PCS; principal; 2018-11-20 07:30)
DX: M96.0 Pseudarthrosis after fusion or arthrodesis (principal); Z98.1 Arthrodesis status; N40.1 Benign prostatic hyperplasia with lower urinary tract symptoms; R35.1 Nocturia
CPT/HCPCS: 97116-GP; 97161-GP; 97166-GO; 97530-GO; 97530-GP; 97535-GO; C1713; C1763; J0171; J0690; J1100; J1170; J1650; J2175; J2250; J2274; J2405; J2704; J3010; J3360